=== PATIENT | male | born 1975 | race Two or more races ===

== ENCOUNTER 2016-07-31 19:31 | Emergency (ER) | payer OTHER | END 2016-07-31 20:48 | disposition home or self-care (01) | LOC: CED 19:31 → CFTX 19:31 | DX: S51.851A Open bite of right forearm, initial encounter (principal); S61.451A Open bite of right hand, initial encounter; W54.0XXA Bitten by dog, initial encounter; Y92.69 Other specified industrial and construction area as the place of occurrence of the external cause; Y99.0 Civilian activity done for income or pay | CPT/HCPCS: 99283 ==